=== PATIENT | female | born 1945 | race Caucasian/White ===

== ENCOUNTER → 2018-03-09 | Outpatient (REF) | payer MEDICARE, OTHER ==
[2018-03-09 13:16] LABS: BASO % 0.6 % (0.0-1.0); EOS % 0.6 % (0.0-3.0); HEMATOCRIT 42.4 % (36.0-47.0); LYMPH # 1.3 10^3/uL (1.5-4.5); MEAN CORPUSCULAR HEMOGLOBIN 31.9 pg (27.0-33.0); MEAN CORPUSCULAR VOLUME 96.6 fl (80.0-96.0); MONO # 0.6 10^3/uL (0.0-0.8); MONO % 9.9 % (0.0-5.0); NEUTROPHILS # 4.4 10^3/uL (1.8-7.7); NEUTROPHILS % 68.7 % (36.0-66.0); PLATELET COUNT, AUTOMATED 239 10^3/uL (150-450); RED BLOOD COUNT 4.39 10^6/uL (4.00-5.40); WHITE BLOOD COUNT 6.5 10^3/uL (4.0-10.0)
[2018-03-09 13:34] LABS: ALBUMIN 4.1 GM/DL (3.2-5.2); ALT/SGPT 27 U/L (12-78); BILIRUBIN,TOTAL 0.7 MG/DL (0.2-1.0); BLOOD UREA NITROGEN 22 MG/DL (7-18); CARBON DIOXIDE LEVEL 29 MEQ/L (21-32); CHLORIDE LEVEL 105 MEQ/L (98-107); CREATININE FOR GFR 0.79 MG/DL (0.55-1.30); GLOMERULAR FILTRATION RATE > 60.0 (>39); GLUCOSE, FASTING 90 MG/DL (70-100); POTASSIUM SERUM 5.5 MEQ/L (3.5-5.1); PTH INTACT 73.9 PG/ML (18.5-88.0); RHEUMATOID FACTOR QUANT < 10.0 IU/ML (<15.0); SODIUM LEVEL 140 MEQ/L (136-145); TOTAL PROTEIN 7.1 GM/DL (6.4-8.2)
[2018-03-09 13:46] LABS: HEMOGLOBIN A1c 5.4 %
[2018-03-09 14:02] LABS: ERYTHROCYTE SEDIMENTATION RATE 4 mm/hr (0-30)
[2018-03-10 08:59] LABS: DRVV SCREEN 34.9 SEC
[2018-03-10 09:13] LABS: PTT LUPUS TYPE ANTICOAG SCREEN 0.8 (0-1.2)
[2018-03-10 10:26] LABS: ALPHA-1-GLOBULIN % 4.1 % (2.9-4.9); ALPHA-1-GLOBULINS 0.29 GM/DL (0.17-0.41); ALPHA-2-GLOBULINS 0.76 GM/DL (0.42-0.99); ALPHA-2-GLOBULINS % 10.7 % (7.1-11.8); BETA-1-GLOBULINS 0.42 GM/DL (0.28-0.60); BETA-1-GLOBULINS % 5.9 % (4.7-7.2); BETA-2-GLOBULINS 0.37 GM/DL (0.19-0.55); BETA-2-GLOBULINS % 5.2 % (3.2-6.5); GAMMA GLOBULIN % 12.1 % (11.1-18.8); GAMMA GLOBULINS 0.86 GM/DL (0.65-1.58)
== END ==
LOC: M LABNEURO 09:18
PROVIDERS: ATTEND Psychiatry & Neurology Neurology
DX: H53.9 Unspecified visual disturbance (principal); G45.9 Transient cerebral ischemic attack, unspecified

== ENCOUNTER 2023-12-24 19:02 | Emergency (ER) | payer MEDICARE, OTHER ==
[~2023-12-24] VITALS: Ht 185.4 cm; Wt 55.1 kg
[2023-12-24 20:12] LABS: BASO # 0.1 10^3/uL (0.0-0.2); BASO % 0.5 % (0.0-1.0); EOS # 0.1 10^3/uL (0.0-0.5); EOS % 0.5 % (0.0-3.0); HEMATOCRIT 40.7 % (36.0-47.0); HEMOGLOBIN 13.3 g/dl (12.0-15.5); LYMPH # 1.2 10^3/uL (1.5-5.0); LYMPH % 11.1 % (24.0-44.0); MEAN CORPUSCULAR HEMOGLOBIN 31.4 pg (27.0-33.0); MEAN CORPUSCULAR HGB CONC 32.7 g/dl (32.0-36.5); MEAN CORPUSCULAR VOLUME 96.2 fl (80.0-96.0); MONO # 1.1 10^3/uL (0.0-0.8); MONO % 10.1 % (2.0-8.0); NEUTROPHILS # 8.6 10^3/uL (1.5-8.5); NEUTROPHILS % 77.6 % (36.0-66.0); PLATELET COUNT, AUTOMATED 251 10^3/uL (150-450); RED BLOOD COUNT 4.23 10^6/uL (4.00-5.40)
[2023-12-24 20:29] LABS: BILIRUBIN,DIRECT 0.3 MG/DL (<0.4); BILIRUBIN,TOTAL 0.8 MG/DL (0.3-1.2); CALCIUM LEVEL 10.3 MG/DL (8.3-10.6); CREATININE FOR GFR 1.47 MG/DL (0.55-1.30); GLOMERULAR FILTRATION RATE 36.7 (>39); POTASSIUM SERUM 4.7 MMOL/L (3.5-5.1)
[2023-12-24] MEDS ORDERED: ISOVUE-370 76% 100ML VIAL As Ordered ONE (22:00)
[2023-12-24] MEDS: KETOROLAC 30 MG/ML 1ML VIAL IV ONE (22:21)
[2023-12-24] MEDS ORDERED: PERC5TAB12 PO (23:56)
[2023-12-25 01:07] VITALS: BP 135/67; TEMP 98; O2SAT 97
[2023-12-25] MEDS: OXYCODONE/APAP 5MG/325MG(HOME DOSE PACK) PO ONE (01:11)
== END 2023-12-25 01:15 | disposition home or self-care (01) ==
LOC: M ED 19:02
DX: R10.9 Unspecified abdominal pain (principal); N13.30 Unspecified hydronephrosis; E78.5 Hyperlipidemia, unspecified; K21.9 Gastro-esophageal reflux disease without esophagitis; Z87.442 Personal history of urinary calculi; Z79.01 Long term (current) use of anticoagulants; Z88.5 Allergy status to narcotic agent; Z88.6 Allergy status to analgesic agent; Z88.8 Allergy status to other drugs, medicaments and biological substances; Z79.899 Other long term (current) drug therapy
CPT/HCPCS: 74177; 80048; 80076; 81001; 83605; 83690; 85025; 87086; 93041; 96374; 99284; J1885; Q9967

== ENCOUNTER 2024-01-28 11:37 | Day surgery (SDC) | payer MEDICARE, OTHER ==
[~2024-01-28] VITALS: Ht 185.4 cm; Wt 53.2 kg
[~2024-01-28 11:37] MED LIST: BISO5TAB14 PO; ELIQ5TAB PO; FAMO1TAB11 PO; ONDA-83 PO; PERC5TAB12 PO; POTA10809 PO; SIMV10TA21 PO
[2024-01-28] MEDS: NS 1,000 ML IV SCH (12:26)
[2024-01-28] MEDS ORDERED: LIDOCAINE 2% 100MG/5ML SDV (FOR ANES.) As Ordered ONE (14:39)
[2024-01-28] MEDS ORDERED: propofoL 200 MG/20 ML VIAL As Ordered ONE (14:39)
[2024-01-28] MEDS ORDERED: fentaNYL 100 MCG/2 ML INJECTION As Ordered ONE (14:40)
[2024-01-28] MEDS ORDERED: ONDANSETRON 4MG 2ML VIAL As Ordered ONE (14:40)
[2024-01-28] MEDS: ceFAZolin SOD 2 GM in IV 1 EA IV ONE (15:36)
[2024-01-28] MEDS ORDERED: ACETAMINOPHEN 1000MG/100ML IV BAG As Ordered ONE (15:48)
[2024-01-28] MEDS: ISOVUE-300 61% 100ML VIAL As Ordered ONE (16:01)
[2024-01-28] MEDS ORDERED: fentaNYL 100 MCG/2 ML INJECTION IV PRN (16:10)
[2024-01-28] MEDS ORDERED: PERCOCET 5MG/325MG TAB PO PRN (16:30)
[2024-01-28] MEDS: ONDANSETRON 4MG 2ML VIAL IV PRN (16:31)
[2024-01-28] MEDS: KETOROLAC 30 MG/ML 1ML VIAL IV ONE (16:32)
[2024-01-28 17:05] VITALS: BP 155/70; TEMP 99.4; O2SAT 99
== END 2024-01-28 17:33 | disposition home or self-care (01) ==
LOC: M SDC 11:37
PROVIDERS: ATTEND Urology
DX: N13.39 Other hydronephrosis (principal); I48.91 Unspecified atrial fibrillation; Z88.8 Allergy status to other drugs, medicaments and biological substances; Z88.1 Allergy status to other antibiotic agents; Z79.899 Other long term (current) drug therapy
CPT/HCPCS: 52332; 52351; 76000; C1769; C2617; J0131; J0690; J1100; J1885; J2405; J3010; Q9967

== ENCOUNTER → 2024-04-07 | Outpatient (CLI) | payer MEDICARE, OTHER | LOC: M WHC 11:33 | PROVIDERS: ATTEND Urology | DX: N13.5 Crossing vessel and stricture of ureter without hydronephrosis (principal) ==

== ENCOUNTER → 2024-10-06 | Outpatient (CLI) | payer MEDICARE, OTHER | LOC: M RAD 09:44 | PROVIDERS: ATTEND Urology | DX: N13.5 Crossing vessel and stricture of ureter without hydronephrosis (principal); N20.0 Calculus of kidney ==

== ENCOUNTER → 2024-11-15 | Outpatient (CLI) | payer MEDICARE, OTHER ==
[~2024-11-15] MED LIST changes: +FUROSEMIDE 20 MG/2 ML VIAL IV ONE
== END ==
LOC: M RAD 12:53
PROVIDERS: ATTEND Urology
DX: N13.5 Crossing vessel and stricture of ureter without hydronephrosis (principal)
CPT/HCPCS: 78708; A9562